=== PATIENT | female | born 1985 | race Caucasian/White ===

== ENCOUNTER 2016-11-25 18:46 | Emergency (ER) | payer BC ==
[2016-11-25 18:55] VITALS: BP 127/83
[2016-11-25] MEDS ORDERED: BENZOIN COMPOUND TINCTURE TOPICAL ONE (19:40)
[2016-11-25] MEDS ORDERED: Benzoin Compound STICK TOPICAL ONE (19:48)
[2016-11-25] MEDS ORDERED: Cephalexin CAP* 500 MG PO ONE (20:05)
--- NOTE | 2016-11-25 20:15 | UC ---
Laceration HPI - HPI Summary HPI Summary: YESTERDAY, WHILE CAMPING, CUT RIGHT 4TH TOE ON UNKNOWN OBJECT. BANDAGED IT TOGETHER. FLAP KEEPS OPENING WITH BUMPING INTO THINGS. TETANUS UP TO DAYS. - History Of Current Complaint Chief Complaint: UCLowerExtremity Stated Complaint: TOE LAC Time Seen by Provider: 11/25/16 19:13 Hx Obtained From: Patient Laceration Location: Toe - RIGHT 4TH TOERIGHT 4TH TOE Mechanism Of Injury: Sharp Trauma Onset/Duration: Sudden Onset, Lasting Days, Still Present Severity: Moderate Aggravating Factors: Position, Movement, Other: - TOUCH - Allergies/Home Medications Allergies/Adverse Reactions: Allergies Allergy/AdvReac Type Severity Reaction Status Date / Time No Known Allergies Allergy Verified 11/25/16 18:54 PMH/Surg Hx/FS Hx/Imm Hx Previously Healthy: Yes - Surgical History Surgical History: Yes Surgery Procedure, Year, and Place: Dorsal Column Stim 2009 CMCDorsal Column Stim 2011 [facility] A CHILD; dorsal column stimulator revision 2014 , Nerve injury L-2 region, accident related. Csection - Family History Known Family History: Negative: Hypertension, Blood Disorder - Social History Occupation: Employed Full-time Lives: With Family Alcohol Use: Occasionally Alcohol Amount: 2 beers per week Substance Use Type: None Substance Use Comment - Amount & Last Used: oxycodone, ativan Smoking Status (MU): Former Smoker Type: Cigarettes Have You Smoked in the Last Year: No When Did the Patient Quit Smoking/Using Tobacco: 2004 - Immunization History Most Recent Influenza Vaccination: 2015 season Most Recent Tetanus Shot: probably >5 years Review of Systems Constitutional: Negative Skin: Other - LACERATION RIGHT 4TH TOE Eyes: Negative ENT: Negative Respiratory: Negative Cardiovascular: Negative Gastrointestinal: Negative Genitourinary: Negative Motor: Negative Neurovascular: Negative Musculoskeletal: Negative Neurological: Negative Psychological: Negative All Other Systems Reviewed And Are Negative: Yes Physical Exam Triage Information Reviewed: Yes Appearance: Well-Appearing, No Pain Distress, Well-Nourished Vital Signs: Initial Vital Signs Temp 99.6 F 11/25/16 18:48 Pulse 97 11/25/16 18:48 Resp 16 11/25/16 18:48 BP 127/83 11/25/16 18:48 Pulse Ox 100 11/25/16 18:48 Vital Signs Reviewed: Yes Eye Exam: Normal Eyes: Positive: Conjunctiva Clear ENT Exam: Normal ENT: Positive: Normal ENT inspection, Hearing grossly normal, Pharynx normal, TMs normal Dental Exam: Normal Neck exam: Normal Neck: Positive: Supple Respiratory Exam: Normal Respiratory: Positive: Chest non-tender, Lungs clear, Normal breath sounds, No respiratory distress Cardiovascular Exam: Normal Cardiovascular: Positive: RRR, No Murmur, Pulses Normal Abdominal Exam: Normal Musculoskeletal Exam: Normal Musculoskeletal: Positive: Strength Intact, ROM Intact, No Edema Neurological Exam: Normal Psychological Exam: Normal Skin: Positive: Other - LACERATION RIGHT 4TH TOE Laceration Repair - Laceration Repair 1 Description: Linear : No Repair Necessary - >20 HOURS Laceration Size After Repair: Length (cm) - 1.5, Width (mm) - 4, Depth (mm) - 4 Closure Material: Skin Adhesive, SteriStrips Suture Of: Skin Laceration Course/Dx - Differential Dx - Laceration/Wound Differental Diagnoses: Laceration Provider Diagnoses: LACERATION RIGHT FOURTH TOE, NO CLOSURE Discharge - Discharge Plan Condition: Stable Disposition: HOME Prescriptions: Cephalexin CAP* [Keflex CAP*] 500 mg PO TID #21 cap Patient Education Materials: Skin Adhesive Care (ED), Steristrips (ED), Laceration Without Closure (ED) Referrals: Julia Silva MD [Primary Care Provider] -
== END 2016-11-25 20:20 | disposition home or self-care (01) ==
LOC: UCEAST 18:46
DX: S91.114A Laceration without foreign body of right lesser toe(s) without damage to nail, initial encounter (principal); W45.8XXA Other foreign body or object entering through skin, initial encounter; Y93.9 Activity, unspecified; Y92.9 Unspecified place or not applicable; Y99.9 Unspecified external cause status; Z87.891 Personal history of nicotine dependence
CPT/HCPCS: 12001; 99212; 99213; A9270-GY; G0463

== ENCOUNTER 2017-03-18 15:32 | Emergency (ER) | payer BC ==
[2017-03-18 15:55] VITALS: BP 117/76
--- NOTE | 2017-03-18 17:22 | RAD ---
Indication: RIGHT knee pain, bruising. Difficulty ambulating. Injury. Comparison: None. Technique: RIGHT knee: AP, tunnel, crosstable lateral, sunrise views. Report: Negative for joint effusion, fracture, or malalignment. Preserved joint spaces. Unremarkable soft tissue contours. IMPRESSION: No radiographic evidence for traumatic injury.
[2017-03-18] MEDS ORDERED: Ketorolac INJ* 60 MG/2 ML VIAL IM ONE (17:58)
--- NOTE | 2017-03-18 18:04 | ED ---
Lower Extremity - HPI Summary HPI Summary: Pt here w/ LT Knee pain since falling through a grate into a hole in her in-law' s basement. Was stuck here for a few minutes and tried to get out - may have cause more injury in doing so. Has pain, bruising around knee which radiating into thigh and leg. Moving knee and ankle hurts knee. Denies numbness, tingling , weakness. Can bear weight but is very painful so has been avoiding this as much as possible. Pain last night kept her awake. She takes oxycodone 5mg daily for chronic back pain - reports she took 2 (10mg) which helped knee pain. Had a panic attack when it happened. No other injuries a a result of this fall. - History of Current Complaint Chief Complaint: EDExtremityLower Stated Complaint: RT LEG INJURY Time Seen by Provider: 03/18/17 17:49 Hx Obtained From: Patient Hx Last Menstrual Period: 11/08/16 Pain Intensity: 9 - Allergies/Home Medications Allergies/Adverse Reactions: Allergies Allergy/AdvReac Type Severity Reaction Status Date / Time No Known Allergies Allergy Verified 01/28/17 15:31 PMH/Surg Hx/FS Hx/Imm Hx Previously Healthy: Yes Endocrine/Hematology History: Denies: Hx Anticoagulant Therapy, Hx Blood Disorders, Hx Diabetes, Hx Thyroid Disease Cardiovascular History: Reports: Other Cardiovascular Problems/Disorders - intermittent tachycardia - follows w/ PCP Denies: Hx Hypertension Respiratory History: Denies: Hx Asthma, Hx Chronic Obstructive Pulmonary Disease (COPD) GI History: Denies: Hx Ulcer Musculoskeletal History: Reports: Hx Back Problems - take daily oxycodone Sensory History: Reports: Hx Contacts or Glasses - CONTACTS Denies: Hx Hearing Aid Opthamlomology History: Reports: Hx Contacts or Glasses - CONTACTS Neurological History: Reports: Hx Seizures - ON MEDS, LAST ONE 6 YRS AGO, Other Neuro Impairments/Disorders - PAIN CLINIC PT - Surgical History Surgery Procedure, Year, and Place: Dorsal Column Stim 2010 CMCDorsal Column Stim 2012 [facility] A CHILD; dorsal column stimulator revision 2015 , Nerve injury L-2 region, accident related. Csection Hx Anesthesia Reactions: No Infectious Disease History: No Infectious Disease History: Denies: Hx Hepatitis, Hx Human Immunodeficiency Virus (HIV), History Other Infectious Disease, Traveled Outside the [place] in Last 30 Days - Family History Known Family History: Negative: Hypertension, Blood Disorder - Social History Alcohol Use: Occasionally Alcohol Amount: 1 glass per week Hx Substance Use: No Substance Use Type: Reports: None Substance Use Comment - Amount & Last Used: rx's for oxycodone, ativan Hx Tobacco Use: Yes Smoking Status (MU): Former Smoker Type: Cigarettes Have You Smoked in the Last Year: No Review of Systems Constitutional: Negative Positive: Arthralgia, Myalgia Positive: Bruising - as in HPI Neurological: Negative Psychological: Normal All Other Systems Reviewed And Are Negative: Yes Physical Exam Triage Information Reviewed: Yes Vital Signs On Initial Exam: Initial Vitals Temp Pulse Resp BP Pulse Ox 98.7 F 107 18 117/76 100 03/18/17 15:51 03/18/17 15:51 03/18/17 15:51 03/18/17 15:51 03/18/17 15:51 Vital Signs Reviewed: Yes Appearance: Positive: Well-Appearing, No Pain Distress - at rest - appears to have pain with gentle movements - pain w/ palpation of affected areas about the knee, anxious but cooperative, Well-Nourished Skin: Positive: Warm, Dry - ecchymosis over B/L areas of knee and anterior knee - no skin breakdown Head/Face: Positive: Normal Head/Face Inspection Eyes: Positive: EOMI ENT: Positive: Hearing grossly normal Respiratory/Lung Sounds: Positive: Breath Sounds Present Cardiovascular: Positive: Pulses are Symmetrical in both Upper and Lower Extremities Musculoskeletal: Positive: Limited @ - Rt knee w/ limited ROM d/t pain - no gross deformity Neurological: Positive: Normal, Sensory/Motor Intact, Alert, Oriented to Person Place, Time, CN Intact II-III Psychiatric: Positive: Anxious - [place] Coma Scale Coma Scale Total: 15 Diagnostics - Vital Signs Vital Signs Temp Pulse Resp BP Pulse Ox 03/18/17 15:51 98.7 F 107 18 117/76 100 - Laboratory Lab Statement: Any lab studies that have been ordered have been reviewed, and results considered in the medical decision making process. Lower Extremity Course/Dx - Course Course Of Treatment: Pt here w/ fall through hole in the floor and resultant knee pain. XR's are w/o acute findings. She has bruising and possible strain/ sprain - unable to perform special tests d/t pt's pain. Advised rest, ice, elevation and non-weight bearing w/ knee immobilizer until seen by ortho. NSAID' s for pain. - Diagnoses Provider Diagnoses: Contusion of knee, right, Sprain of right knee Discharge - Discharge Plan Condition: Stable Disposition: HOME Prescriptions: Naproxen TAB* [Naprosyn 250 mg TAB*] 500 mg PO Q12HR #20 tab Patient Education Materials: Knee Sprain (ED), Knee Immobilizer (ED), Crutch Instructions (ED) Referrals: Rufus Gambino MD [Medical Doctor] - Additional Instructions: Rest, ice, elevate Wear knee immobilizer and use crutches to avoid weight bearing until cleared by orthopedics - call tomorrow to schedule an appointment. Take NSAID's as directed - sent to your pharmacy. DO NOT TAKE WITH IBUPROFEN/ ADVIL/ALEVE or other NSAID's
== END 2017-03-18 18:43 | disposition home or self-care (01) ==
LOC: ED 15:32
DX: S83.91XA Sprain of unspecified site of right knee, initial encounter (principal); S80.01XA Contusion of right knee, initial encounter; W17.89XA Other fall from one level to another, initial encounter; Y92.9 Unspecified place or not applicable
CPT/HCPCS: 96372; 99282; J1885

== ENCOUNTER 2018-02-26 12:49 | Emergency (ER) | payer BC ==
[2018-02-26 13:07] VITALS: BP 117/81
--- NOTE | 2018-02-26 13:59 | UC ---
Throat Pain/Nasal Maurizio HPI - HPI Summary HPI Summary: The patient is a 32-year-old female with the onset of sore throat about 6 hours ago. Her daughter was recently diagnosed with strep. She has had no fever or chills. She has a very mild headache. He denies any myalgias. She has no tonsils. She denies any URI symptoms. - History of Current Complaint Chief Complaint: UCRespiratory Stated Complaint: SORE THROAT Time Seen by Provider: 02/26/18 13:50 Hx Obtained From: Patient Hx Last Menstrual Period: 11/08/16 Onset/Duration: Gradual Onset, Lasting Hours Severity: Moderate Pain Intensity: 6 Pain Scale Used: 0-10 Numeric Cough: Nonproductive Related History: T & A - Epiglottits Risk Factors Epiglottis Risk Factors: Negative - Allergies/Home Medications Allergies/Adverse Reactions: Allergies Allergy/AdvReac Type Severity Reaction Status Date / Time No Known Allergies Allergy Verified 02/26/18 13:06 Home Medications: Home Medications Ibuprofen 400 mg PO 02/26/18 [History] PMH/Surg Hx/FS Hx/Imm Hx Previously Healthy: Yes Other History Of: Negative For: Anticoagulant Therapy - Surgical History Surgical History: Yes Surgery Procedure, Year, and Place: Dorsal Column Stim 2009 CMCDorsal Column Stim 2011 [facility] A CHILD; dorsal column stimulator revision 2014 , Nerve injury L-2 region, accident related. Csection - Family History Known Family History: Negative: Hypertension, Blood Disorder - Social History Alcohol Use: Occasionally Alcohol Amount: 1 glass per week Substance Use Type: None Substance Use Comment - Amount & Last Used: rx's for oxycodone, ativan Smoking Status (MU): Former Smoker Type: Cigarettes Have You Smoked in the Last Year: No When Did the Patient Quit Smoking/Using Tobacco: 2004 - Immunization History Most Recent Influenza Vaccination: 2016 season Most Recent Tetanus Shot: probably >5 years Review of Systems Constitutional: Negative Skin: Negative Eyes: Negative ENT: Sore Throat Respiratory: Negative Cardiovascular: Negative Gastrointestinal: Negative Genitourinary: Negative Motor: Negative Neurovascular: Negative Musculoskeletal: Negative Neurological: Negative Psychological: Negative All Other Systems Reviewed And Are Negative: Yes Physical Exam Triage Information Reviewed: Yes Appearance: Well-Appearing, No Pain Distress, Well-Nourished Vital Signs: Initial Vital Signs Temp 98.2 F 02/26/18 13:02 Pulse 91 02/26/18 13:02 Resp 18 02/26/18 13:02 BP 117/81 02/26/18 13:02 Pulse Ox 100 02/26/18 13:02 Vital Signs Reviewed: Yes Eyes: Positive: Conjunctiva Clear ENT: Positive: Hearing grossly normal, Pharynx normal, Uvula midline. Negative : Nasal congestion, Nasal drainage, Tonsillar swelling, Tonsillar exudate Neck: Positive: Supple, Nontender, Enlarged Nodes @ - ant cerv Respiratory: Positive: Lungs clear, Normal breath sounds, No respiratory distress Cardiovascular: Positive: RRR, No Murmur Musculoskeletal: Positive: ROM Intact, No Edema Neurological: Positive: Alert Psychological Exam: Normal Skin Exam: Normal Throat Pain/Nasal Course/Dx - Differential Dx/Diagnosis Provider Diagnoses: acute pharyngitis Discharge - Sign-Out/Discharge Documenting (check all that apply): Patient Departure All imaging exams completed and their final reports reviewed: No Studies - Discharge Plan Condition: Stable Disposition: HOME Patient Education Materials: Pharyngitis (ED) Referrals: Julia Silva MD [Primary Care Provider] - If Needed Additional Instructions: strep (-) tylenol or advil if needed recheck for new or worsening symptoms recheck in 4 days if not better - Billing Disposition and Condition Condition: STABLE Disposition: Home
== END 2018-02-26 14:09 | disposition home or self-care (01) ==
LOC: UCEAST 12:49
DX: J02.9 Acute pharyngitis, unspecified (principal); Z87.891 Personal history of nicotine dependence
CPT/HCPCS: 87651; 99211; G0463